=== PATIENT | male | born 1935 ===

== ENCOUNTER 2018-09-29 17:02 | Inpatient (IN) | payer OTHER ==
[~2018-09-29] VITALS: Ht 188 cm; Wt 89.8 kg
[2018-09-29] MEDS ORDERED: ESTAZOLAM2 MG (17:34)
[2018-09-29] MEDS ORDERED: CARVEDILOL6.25 MG (17:34)
[2018-09-29] MEDS ORDERED: ALENDRONATE SOD70 MG (17:34)
[2018-09-29] MEDS ORDERED: ELIQUIS5 MG (17:34)
[2018-09-29] MEDS ORDERED: [UNRECOGNIZED DRUG - OTHER] (17:35)
[2018-09-29] MEDS ORDERED: LOSARTAN POTASS25 MG (17:35)
== END 2018-10-01 17:34 | disposition home or self-care (01) | DRG 812 ==
LOC: MEDJ 17:02 → MEDI 17:02
PROVIDERS: ADMIT Internal Medicine Hematology & Oncology
PROC: 07DR3ZZ Extraction of Iliac Bone Marrow, Percutaneous Approach (ICD-10-PCS; principal; 2018-09-30)
PROC: 30233N1 Transfusion of Nonautologous Red Blood Cells into Peripheral Vein, Percutaneous Approach (ICD-10-PCS; 2018-09-30)
DX: D46.A Refractory cytopenia with multilineage dysplasia (principal); I50.22 Chronic systolic (congestive) heart failure; M81.0 Age-related osteoporosis without current pathological fracture; I48.0 Paroxysmal atrial fibrillation; Z79.01 Long term (current) use of anticoagulants; I71.2 Thoracic aortic aneurysm, without rupture; D69.49 Other primary thrombocytopenia; I11.0 Hypertensive heart disease with heart failure; D75.89 Other specified diseases of blood and blood-forming organs

== ENCOUNTER 2018-11-08 17:42 | Inpatient (IN) | payer OTHER ==
[~2018-11-08 17:42] MED LIST: ALENDRONATE SOD70 MG; CARVEDILOL6.25 MG; ELIQUIS5 MG; ESTAZOLAM2 MG; LOSARTAN POTASS25 MG; [UNRECOGNIZED DRUG - OTHER]
[2018-11-08] MEDS ORDERED: VITAMIN D35000 UNIT (17:58)
[2018-11-08] MEDS ORDERED: B-COMPLEX WITH1 EAC2 (17:59)
[2018-11-08] MEDS ORDERED: TAMS0.4C (17:59)
[2018-11-10] MEDS ORDERED: ELIQUIS2.5 MG PO (18:03)
[2018-11-10] MEDS ORDERED: TAMSULOSIN HCL0.4 MG PO (18:03)
[2018-11-10] MEDS ORDERED: Coreg 6.25MG TABLET PO (18:04)
[2018-11-10] MEDS ORDERED: LOSARTAN POTASS25 MG PO (18:05)
[2018-11-10] MEDS ORDERED: CARVEDILOL6.25 MG PO (18:05)
== END 2018-11-10 18:25 | disposition home or self-care (01) | DRG 812 ==
LOC: MEDJ 17:42
PROVIDERS: ADMIT Internal Medicine Hematology & Oncology
PROC: 8E0ZXY6 Isolation (ICD-10-PCS; principal; 2018-11-08)
PROC: 30233N1 Transfusion of Nonautologous Red Blood Cells into Peripheral Vein, Percutaneous Approach (ICD-10-PCS; 2018-11-09)
DX: D50.0 Iron deficiency anemia secondary to blood loss (chronic) (principal); I11.0 Hypertensive heart disease with heart failure; I48.0 Paroxysmal atrial fibrillation; I50.89 Other heart failure; I71.2 Thoracic aortic aneurysm, without rupture; M81.0 Age-related osteoporosis without current pathological fracture; Z79.01 Long term (current) use of anticoagulants